=== PATIENT | female | born 1995 | race Caucasian/White ===

== ENCOUNTER 2017-03-10 10:20 | Emergency (ER) | payer SELFPAY ==
[2017-03-10 10:32] VITALS: BP 120/70; BMI 20.5
--- NOTE | 2017-03-10 13:07 | ED.ABDFE ---
HPI - PCP Primary Care Physician: CHEPE RODAS - Complaint Chief Complaint:: PT C/O GETTING OUT OF HER CAR AND FALLING ON HER BUTT ,,, AND SHE HAS HAD LOWER ABD PAINS COMING OFF AND ON ,, AND SOME SPOTTING,, - Nurses notes reviewed Nurses Notes Review: Yes - Source History Provided: Patient - Mode of arrival Mode of Arrival: Ambulatory - Timing Onset of Chief Complaint: 03/09/17 PMH - PMH Past Medical History: No Past Surgical History: No - Family History History of Family Medical Conditions: No - Social History Does patient currently use any type of tobacco product: No Have you used tobacco products in the last 12 months: No Type of Tobacco Use: None Does any household member use tobacco: No Alcohol Use: None Do you use any recreational Drugs:: No Lives With: Family Lives Where: Home - infectious screening In the last 2 months have you had wt loss of >10#?: NO Have you had fever, night sweats or hemotysis?: No Have you traveled outside the country in the last 6 months?: No Isolation: Standard PE - Vital Signs Vitals: Pulse Rate 79 Respiratory Rate 18 Blood Pressure 120/70 O2 Sat by Pulse Oximetry 100 - Discharge Plan Condition: Stable - Follow ups/Referrals Follow ups/Referrals: NFD,None [Primary Care Provider] - 3 days - Instructions Instructions: Abdominal Pain, Adult, [id number] Additional Instructions: RETURN TO ED IF WORSE.
--- NOTE | 2017-03-10 14:13 | RAD ---
Acute abdominal series Indication: abdominal pain after fall Comparison: None available Findings: The trachea is midline. The cardiac silhouette is unremarkable. The lungs are clear without focal i nfiltrate or effusion. The bony thorax is unremarkable. Flat and upright evaluation of the abdomen demonstrates a normal bowel gas pattern. No pathological soft tissue mass or calcification can be observed. The bony structures are grossly intact. IMPRESSION: 1. No acute cardiopulmonary disease. 2. No evidence for acute abdominal pathology identified. Reported By:
[2017-03-10 14:28] LABS: APPEARANCE,URINE CLEAR (CLEAR); COLOR,URINE YELLOW (YELLOW)
[2017-03-10 14:29] LABS: BILIRUBIN,URINE NEGATIVE (NEGATIVE); BLOOD/HEMOGLOBIN,URINE NEGATIVE (NEGATIVE); GLUCOSE, URINE NEGATIVE (NEGATIVE); KETONES,URINE NEGATIVE (NEGATIVE); NITRITES,URINE NEGATIVE (NEGATIVE); PROTEIN,URINE NEGATIVE (NEGATIVE); UROBILINOGEN,URINE NORMAL (NORMAL)
[2017-03-10 14:30] LABS: AMORPHOUS SEDIMENT,UR TRACE /HPF (NEGATIVE); BACTERIA,URINE NEGATIVE /HPF (NEGATIVE); LEUKOCYTE ESTERASE ,URINE NEGATIVE (NEGATIVE); RBC,URINE R /HPF (NEGATIVE); SQUAMOUS EPITHELIAL CELL,UR RARE /HPF (NEGATIVE)
[2017-03-10 14:37] LABS: AMYLASE 63 Units/L (25-115); BASOPHILS % (AUTO) 0.6 % (0.2-1.0); BLOOD UREA NITROGEN 6 mg/dL (7-18); CALCIUM 8.6 mg/dL (8.5-10.1); CARBON DIOXIDE 24.8 mmol/L (21-32); CHLORIDE 105 mmol/L (98-107); EOSINOPHILS # (AUTO) 0.1 x10^3/uL (0.0-0.2); EOSINOPHILS % (AUTO) 1.1 % (0.9-2.9); HEMATOCRIT 34.9 % (36.0-47.0); LIPASE 142 Units/L (73-393); LYMPHOCYTES # (AUTO) 2.2 X10^3/uL (1.3-2.9); LYMPHOCYTES % (AUTO) 36.1 % (21.0-51.0); MEAN CORPUSCULAR HEMOGLOBIN 32.2 pg (27.0-34.0); MEAN CORPUSCULAR HGB CONC 34.5 g/dL (33.0-35.0); MEAN CORPUSCULAR VOLUME 93.3 fL (80.0-100.0); MEAN PLATELET VOLUME 7.2 fL (7.4-11.0); MONOCYTES # (AUTO) 0.5 x10^3/uL (0.3-0.8); MONOCYTES % (AUTO) 8.2 % (0.0-13.0); NEUTROPHILS # (AUTO) 3.3 x10^3/uL (2.2-4.8); PLATELET COUNT 290 X10^3/uL (150.0-450.0); RED BLOOD COUNT 3.74 X10^6/uL (3.5-5.4); RED CELL DISTRIBUTION WIDTH 12.7 % (11.6-16.5); SODIUM 139 mmol/L (136-145); eGFR BLACK RACES > 60 (>60); eGFR NON BLACK RACES > 60 (>60)
== END 2017-03-10 13:24 | disposition home or self-care (01) ==
LOC: ER 10:39
DX: R10.84 Generalized abdominal pain (principal)
CPT/HCPCS: 36415; 74022; 80048; 81001; 82150; 83690; 85025; 99282

== ENCOUNTER 2021-03-19 16:11 | Observation (INO) ==
[2021-03-19 16:19] VITALS: BMI 21.8
[2021-03-19 17:09] LABS: AMYLASE 41 Units/L (25-115); LIPASE 58 Units/L (73-393)
--- NOTE | 2021-03-19 17:17 | ED.ABDFE ---
HPI Time Seen Time Seen by Provider: 03/19/21 17:15 PCP Primary Care Physician: Lucien Whitaker Doctors Chief Complaint Comments: c/o abd pain RLQ. CT done today shows early appy. Chief Complaint:: Pt c/o abd pain x 2 days. She states she had a ct done today and was told to follow up with Dr. Mcgraw . She states she is unable to wait for follow up due to pain. She states Dr. Mcgraw's office " Told me to prepare for surgery." COVID-19 Coronavirus risk:travel/contact w/high risk person: No Has patient experienced Coronavirus symptoms: No Source History Provided: Patient Mode of arrival Mode of Arrival: Ambulatory Timing Onset of Chief Complaint: 03/18/21 PMH PMH Past Medical History: No Past Surgical History: Yes Surgical History: Family History History of Family Medical Conditions: No Social History Does patient currently use any type of tobacco product: No Have you used tobacco products in the last 12 months: No Type of Tobacco Use: None Does any household member use tobacco: No Alcohol Use: None Do you use any recreational Drugs:: No Lives With: Family Lives Where: Home Travel Risk Coronavirus risk:travel/contact w/high risk person: No Has patient experienced Coronavirus symptoms: No Infectious screening In the last 2 months have you had wt loss of >10#?: NO Have you had fever, night sweats or hemotysis?: No Have you traveled outside the country in the last 6 months?: No Isolation: Standard ROS Review of Systems Constitutional: No Symptoms Reported Eyes: No Symptoms Reported Respiratoy: No Symptoms Reported Cardiovascular: No Symptoms Reported Gastrointestinal/Abdominal: See HPI Genitourinary: No Symptoms Reported Neurological: No Symptoms Reported Musculoskeletal: No Symptoms Reported PE Vital Signs Vitals: Temperature 98.1 F Pulse Rate 78 Respiratory Rate 16 Blood Pressure 123/78 O2 Sat by Pulse Oximetry 97 Head Head Exam: Normal Inspection, Atraumatic and Normocephalic ENT ENT Exam: Normal Exam Neck Neck Exam: Normal Inspection Respiratory Respiratory Exam: Normal Lung Sounds Bilat; negative Accessory Muscle Use Cardiovascular Cardiovascular Exam: Regular Rate and Normal Heart Sounds Abdominal Exam Abdominal Exam: Normal Inspection, Normal Bowel Sounds, Soft and Tenderness (RLQ); negative Rebound Back Back Exam: Normal Inspection Neurologic Neurological Exam: Alert and Oriented X3 Skin Skin Exam: Warm, Dry and Intact ROR Labs Reviewed Laboratory Results Reviewed?: Yes (reviewed BMP, UA both neg. ) Result Diagrams: 03/19/21 17: Laboratory: WBC 9.0 X10^3/uL (3.6-10.0) 03/19/21 17: RBC 4.05 X10^6/uL (3.5-5.4) 03/19/21 17: Hgb 13.2 g/dL (12.0-16.0) 03/19/21 17: Hct 38.5 % (36.0-47.0) 03/19/21 17: MCV 95.1 fL (80.0-100.0) 03/19/21 17: MCH 32.6 pg (27.0-34.0) 03/19/21 17: MCHC 34.3 g/dL (33.0-35.0) 03/19/21 17: RDW 12.5 % (11.6-16.5) 03/19/21 17: Plt Count 260 X10^3/uL (150.0-450.0) 03/19/21 17: MPV 7.6 fL (7.4-11.0) 03/19/21 17: Neut % (Auto) 59.6 % (42.0-75.0) 03/19/21 17: Lymph % (Auto) 31.1 % (21.0-51.0) 03/19/21 17: Bennett % (Auto) 8.4 % (0.0-13.0) 03/19/21 17: Eos % (Auto) 0.5 % (0.9-2.9) L 03/19/21 17:33 Baso % (Auto) 0.4 % (0.2-1.0) 03/19/21 17: Neut # (Auto) 5.3 x10^3/uL (2.2-4.8) H 03/19/21 17: Lymph # (Auto) 2.8 X10^3/uL (1.3-2.9) 03/19/21 17: Bennett # (Auto) 0.8 x10^3/uL (0.3-0.8) 03/19/21 17:33 Eos # (Auto) 0.0 x10^3/uL (0.0-0.2) 03/19/21 17:33 Baso # (Auto) 0.0 X10^3/uL (0.0-0.1) 03/19/21 17:33 Absolute Nucleated RBC 0.1 /100WBC 03/19/21 17:33 Amylase 41 Units/L (25-115) 03/19/21 12:08 Lipase 58 Units/L (73-393) L 03/19/21 12:08 HCG, Qual Negative <10 mIU/mL 03/19/21 12:08 Specimen Type Clean catch urine 03/19/21 18:02 Urine Color Yellow (YELLOW) 03/19/21 18:02 Urine Appearance Clear (CLEAR) 03/19/21 18:02 Urine pH 6.5 (5.0 - 8.0) 03/19/21 18:02 Ur Specific [place] 1.005 (1.000-1.030) 03/19/21 18:02 Urine Protein 3+ (NEGATIVE) 03/19/21 18:02 Urine Glucose (UA) Negative (NEGATIVE) 03/19/21 18:02 Urine Ketones 3+ (NEGATIVE) 03/19/21 18:02 Urine Occult Blood 1+ (NEGATIVE) 03/19/21 18:02 Urine Nitrite Negative (NEGATIVE) 03/19/21 18:02 Urine Bilirubin Negative (NEGATIVE) 03/19/21 18:02 Urine Urobilinogen Normal (NORMAL) 03/19/21 18:02 Ur Leukocyte Esterase 1+ (NEGATIVE) 03/19/21 18:02 Urine RBC 3-5 /HPF (0-3) A 03/19/21 18:02 Urine WBC 3-5 /HPF (0-5) 03/19/21 18:02 Ur Squamous Epith Cells Rare /HPF (NEGATIVE) 03/19/21 18:02 Urine Bacteria Trace /HPF (NEGATIVE) 03/19/21 18:02 Ur Culture Indicated? No/not indicated 03/19/21 18:02 Opioid Opioid Risk Tool Age (Manuel box if 16-45): Yes History of Preadolescent Sexual Abuse: No Total: 1 Total Score Risk Category: Low Risk Copyright: Sergey BRIONES predicting aberrant behaviors Diagnosis Discharge Problem: Abdominal pain, Appendicitis ADDITIONAL NOTES Additional Notes Additional Notes: admit to Dr Mcgraw per Dr Hart
[2021-03-19 17:35] LABS: SERUM PREGNANCY TEST, QUAL NEGATIVE <10 mIU/mL
[2021-03-19] MEDS ORDERED: ZOSYN VIAL 3.375 GRAMS 3.375 G in NS 50 ML IV + SPIKE MINIBAG* 50 ML IV ONE (17:38)
[2021-03-19] MEDS ORDERED: ZOSYN VIAL 3.375 GRAMS IV ONE (17:46)
[2021-03-19] MEDS ORDERED: NS 100 ML IV + SPIKE MINIBAG* 100 ML IV ONE (17:46)
[2021-03-19] MEDS ORDERED: NS 1000 ML 1,000 ML ONE (17:46)
[2021-03-19 17:50] LABS: BASOPHILS % (AUTO) 0.4 % (0.2-1.0); EOSINOPHILS % (AUTO) 0.5 % (0.9-2.9); HEMATOCRIT 38.5 % (36.0-47.0); HEMOGLOBIN 13.2 g/dL (12.0-16.0); LYMPHOCYTES # (AUTO) 2.8 X10^3/uL (1.3-2.9); LYMPHOCYTES % (AUTO) 31.1 % (21.0-51.0); MEAN CORPUSCULAR HEMOGLOBIN 32.6 pg (27.0-34.0); MEAN CORPUSCULAR HGB CONC 34.3 g/dL (33.0-35.0); MEAN CORPUSCULAR VOLUME 95.1 fL (80.0-100.0); MEAN PLATELET VOLUME 7.6 fL (7.4-11.0); MONOCYTES # (AUTO) 0.8 x10^3/uL (0.3-0.8); MONOCYTES % (AUTO) 8.4 % (0.0-13.0); NEUTROPHILS # (AUTO) 5.3 x10^3/uL (2.2-4.8); NEUTROPHILS % (AUTO) 59.6 % (42.0-75.0); PLATELET COUNT 260 X10^3/uL (150.0-450.0); RED BLOOD COUNT 4.05 X10^6/uL (3.5-5.4); RED CELL DISTRIBUTION WIDTH 12.5 % (11.6-16.5)
[2021-03-19] MEDS ORDERED: NS 1000 ML 1,000 ML IV SCH ×2 (18:00→21:00)
[2021-03-19 18:38] LABS: BILIRUBIN,URINE NEGATIVE (NEGATIVE); BLOOD/HEMOGLOBIN,URINE 1+ (NEGATIVE); GLUCOSE, URINE NEGATIVE (NEGATIVE); KETONES,URINE 3+ (NEGATIVE); LEUKOCYTE ESTERASE ,URINE 1+ (NEGATIVE); NITRITES,URINE NEGATIVE (NEGATIVE); PH,URINE 6.5 (5.0 - 8.0); PROTEIN,URINE 3+ (NEGATIVE); UROBILINOGEN,URINE NORMAL (NORMAL)
[2021-03-19 18:54] LABS: APPEARANCE,URINE CLEAR (CLEAR); COLOR,URINE YELLOW (YELLOW)
[2021-03-19 18:55] LABS: BACTERIA,URINE TRACE /HPF (NEGATIVE); SQUAMOUS EPITHELIAL CELL,UR RARE /HPF (NEGATIVE)
[2021-03-19] MEDS ORDERED: DILAUDID INJ IVP PRN (20:26)
[2021-03-19] MEDS: ZOSYN VIAL 3.375 GRAMS 3.375 G in NS 50 ML IV + SPIKE MINIBAG* 50 ML IV SCH ×2 (20:46→22:01)
[2021-03-19] MEDS ORDERED: D5 1/2 NS 1000 ML 1,000 ML IV ONE (20:54)
[2021-03-19] MEDS: D5 1/2 NS 1000 ML 1,000 ML IV SCH (21:04)
[2021-03-19] MEDS: ZOFRAN INJ 4 MG VIAL IVP PRN (23:50)
[2021-03-20] MEDS: D5 1/2 NS 1000 ML 1,000 ML IV SCH ×2 (05:42→13:41)
[2021-03-20] MEDS: ZOSYN VIAL 3.375 GRAMS 3.375 G in NS 50 ML IV + SPIKE MINIBAG* 50 ML IV SCH ×3 (05:58→22:10)
--- NOTE | 2021-03-20 06:20 | RAD ---
HISTORYPOSSIBLE SX FOR APPENDICITISSTUDYCHEST, 1 VIEWCOMPARISONNoneTECHNIQUEAP view of the chestFINDINGSThe cardiac and mediastinal contours are within normal limits. The lungs are clear without focal consolidation or segmental collapse. No pleural effusion or pneumothorax.IMPRESSIONNo acute pulmonary process.Electronically signed by: Cameron Abreu (Mar 20, 2021 06:18:07)
[2021-03-20 06:38] LABS: BASOPHILS % (AUTO) 0.6 % (0.2-1.0); EOSINOPHILS # (AUTO) 0.1 x10^3/uL (0.0-0.2); EOSINOPHILS % (AUTO) 1.4 % (0.9-2.9); HEMATOCRIT 36.7 % (36.0-47.0); HEMOGLOBIN 12.6 g/dL (12.0-16.0); LYMPHOCYTES # (AUTO) 2.3 X10^3/uL (1.3-2.9); LYMPHOCYTES % (AUTO) 39.6 % (21.0-51.0); MEAN CORPUSCULAR HEMOGLOBIN 32.4 pg (27.0-34.0); MEAN CORPUSCULAR HGB CONC 34.3 g/dL (33.0-35.0); MEAN CORPUSCULAR VOLUME 94.5 fL (80.0-100.0); MEAN PLATELET VOLUME 7.8 fL (7.4-11.0); MONOCYTES # (AUTO) 0.7 x10^3/uL (0.3-0.8); MONOCYTES % (AUTO) 13.1 % (0.0-13.0); NEUTROPHILS # (AUTO) 2.6 x10^3/uL (2.2-4.8); NEUTROPHILS % (AUTO) 45.3 % (42.0-75.0); PLATELET COUNT 221 X10^3/uL (150.0-450.0); RED BLOOD COUNT 3.88 X10^6/uL (3.5-5.4); RED CELL DISTRIBUTION WIDTH 12.4 % (11.6-16.5); WHITE BLOOD COUNT 5.7 X10^3/uL (3.6-10.0)
[2021-03-20 06:57] LABS: ALANINE AMINOTRANSFERASE 10 Units/L (12-78); ALBUMIN 3.7 g/dL (3.4-5.0); ALKALINE PHOSPHATASE 28 Units/L (46-116); ASPARTATE AMINO TRANSFERASE 13 Units/L (15-37); BLOOD UREA NITROGEN 11 mg/dL (7-18); CALCIUM 8.2 mg/dL (8.5-10.1); CARBON DIOXIDE 22.3 mmol/L (21-32); CHLORIDE 102 mmol/L (98-107); CREATININE 0.79 mg/dL (0.55-1.02); SODIUM 137 mmol/L (136-145); TOTAL PROTEIN 6.7 g/dL (6.4-8.2); eGFR NON BLACK RACES > 60 (>60)
[2021-03-20] MEDS: ZOFRAN INJ 4 MG VIAL IVP PRN (07:21)
[2021-03-20] MEDS ORDERED: MORPHINE SULFATE INJ 2 MG INJ IVP PRN (07:44)
[2021-03-20] MEDS ORDERED: POTASSIUM CHL 60 MEQ/NS 0.45% 500 ML IV PRN (09:20)
[2021-03-20] MEDS ORDERED: POTASSIUM CHLORIDE LIQ 20 MEQ UDC PO PRN (09:20)
[2021-03-20] MEDS ORDERED: KLOR-CON PO PRN (09:20)
[2021-03-20] MEDS ORDERED: MICRO K EXTEN CAP 10 MEQ PO PRN (09:20)
[2021-03-20] MEDS ORDERED: K-DUR TAB 20 MEQ PO PRN (09:20)
[2021-03-20] MEDS ORDERED: POTASSIUM CHL 40 MEQ/NS 0.45% 500 ML IV PRN (09:20)
--- NOTE | 2021-03-20 09:26 | US ---
HISTORYRLQ ABD PAINSTUDYPELVIC (NON OB)COMPARISONNoneTECHNIQUEPelvic ultrasound, transabdominal approach.FINDINGSThe uterus measures 7.5 x 4.2 x 4.8 cm. The endometrium measures 1 cm. An IUD is visualized within the endometrial canal. Right ovary measures 2.6 x 2.7 x 2.3 cm. Left ovary measures 3.5 x 1.8 x 1.7 cm. There is normal Doppler flow to both ovaries. Normal appearing left ovarian follicle. No free fluid in the pelvis.IMPRESSIONNormal transabdominal pelvic ultrasound.Electronically signed by: Cameron bAreu (Mar 20, 2021 09:24:07)
--- NOTE | 2021-03-20 11:20 | DR.UPDATE ---
H&P Update History and Physical Update: History and Physical reviewed and patient examined. Changes noted: Yes with the following: PRESENTED TO THE OFFICE WITH COMPLAINTS OF SEVERE RLQ ABDOMINAL PAIN, N/V X 1 DAY. SHE DENIED FEVER. [facility] CT WHICH REVEALED POSSIBLE VERY EARLY ACUTE APPENDICITIS. SHE WAS THEN SENT THROUGH THE ER FOR FURTHER EVALUATION AND A SURGICAL CONSULT. LABS WERE OBTAINED IN THE ER AND WERE ESSENTIALLY NORMAL. LIPASE WAS 58, BUT WBC WAS WNL. URINALYSIS DID REVEAL WBC 3-5, RBC 3-5, LEUKOCYTES 1+, BACTERIA TRACE. SHE WAS STARTED ON D51/2NS AT 125 ML/HR, MORPHINE SULFATE 2MG IV Q4H PRN, ZOFRAN 4MG IV Q8H PRN, ZOSYN 3.375G IV TID. , GENERAL SURGEON WILL CONSULT WITH PATIENT. OTHERWISE, WE WILL FOLLOW UP WITH AM LABS AND CONTINUE TO MONITOR PATIENT. TIME SPENT ON CLINICAL ASSESSMENT, REVIEWING LABS AND IMAGING, DECISION MAKING, AND DOCUMENTATION GREATER THAN 75 MINUTES. Prescription drug monitoring program results: PDMP was not reviewed H&P Reviewed: Yes Patient was examined?: Yes
[2021-03-20] MEDS: K-RIDER 10 MEQ/NS 100 ML 10 MEQ/100 ML BAG IV PRN ×2 (11:45→12:20)
[2021-03-20] MEDS ORDERED: FENTANYL VIAL INJ 100 mcg ONE (13:33)
[2021-03-20] MEDS ORDERED: DILAUDID INJ ONE (13:33)
[2021-03-20] MEDS ORDERED: XYLOCAINE 2 % (PLAIN) ONE (14:54)
[2021-03-20] MEDS ORDERED: DIPRIVAN VIAL ONE (14:54)
[2021-03-20] MEDS ORDERED: LTA KIT LIDOCAINE 4% ONE (14:54)
[2021-03-20] MEDS ORDERED: ZEMURON 50 MG VIAL ONE (14:54)
[2021-03-20] MEDS ORDERED: BRIDION ONE (14:54)
[2021-03-20] MEDS ORDERED: VERSED ONE (14:54)
[2021-03-20] MEDS ORDERED: ZOFRAN INJ 4 MG VIAL ONE (14:54)
[2021-03-20] MEDS ORDERED: DECADRON INJ ONE (14:54)
[2021-03-20] MEDS ORDERED: BETADINE SOLN ONE (15:12)
[2021-03-20] MEDS ORDERED: OFIRMEV IV 1000 MG VIAL 1,000 MG/100 ML VIAL IV ONE (15:19)
[2021-03-20] MEDS ORDERED: BACTROBAN TOPICAL OINT ONE (15:28)
[2021-03-20] MEDS ORDERED: PHENERGAN INJ 25 MG IM PRN (15:56)
[2021-03-20] MEDS ORDERED: BARHEMSYS INJ IVP PRN (15:56)
[2021-03-20] MEDS ORDERED: BENADRYL INJ 50 MG VIAL IVP PRN (15:56)
[2021-03-20] MEDS ORDERED: DILAUDID INJ IVP PRN (15:56)
[2021-03-20] MEDS ORDERED: D5 1/4 NS 1000 ML 1,000 ML IV SCH (16:01)
[2021-03-20] MEDS ORDERED: BARHEMSYS INJ ONE (16:21)
[2021-03-20] MEDS ORDERED: MYLICON TAB 80 MG CHEW PO PRN (17:55)
[2021-03-20] MEDS ORDERED: ANCEF VIAL 1 GRAM IVP SCH (22:00)
[2021-03-20] MEDS: TYLENOL 325 MG TAB PO PRN (23:13)
[2021-03-21] MEDS: D5 1/2 NS 1000 ML 1,000 ML IV SCH ×2 (06:03)
[2021-03-21] MEDS: ZOSYN VIAL 3.375 GRAMS 3.375 G in NS 50 ML IV + SPIKE MINIBAG* 50 ML IV SCH (06:03)
[2021-03-21] MEDS: TYLENOL 325 MG TAB PO PRN (06:18)
[2021-03-21 06:36] LABS: BASOPHILS % (AUTO) 0 % (0.2-1.0); HEMATOCRIT 36.8 % (36.0-47.0); HEMOGLOBIN 12.7 g/dL (12.0-16.0); LYMPHOCYTES # (AUTO) 0.9 X10^3/uL (1.3-2.9); LYMPHOCYTES % (AUTO) 13.5 % (21.0-51.0); MEAN CORPUSCULAR HEMOGLOBIN 32.1 pg (27.0-34.0); MEAN CORPUSCULAR HGB CONC 34.6 g/dL (33.0-35.0); MONOCYTES # (AUTO) 0.5 x10^3/uL (0.3-0.8); MONOCYTES % (AUTO) 7.4 % (0.0-13.0); NEUTROPHILS # (AUTO) 5.6 x10^3/uL (2.2-4.8); NEUTROPHILS % (AUTO) 79.1 % (42.0-75.0); PLATELET COUNT 224 X10^3/uL (150.0-450.0); RED BLOOD COUNT 3.96 X10^6/uL (3.5-5.4); RED CELL DISTRIBUTION WIDTH 12.4 % (11.6-16.5)
[2021-03-21 07:02] LABS: ALANINE AMINOTRANSFERASE 11 Units/L (12-78); ALBUMIN 3.4 g/dL (3.4-5.0); ALKALINE PHOSPHATASE 26 Units/L (46-116); ASPARTATE AMINO TRANSFERASE 13 Units/L (15-37); BLOOD UREA NITROGEN 5 mg/dL (7-18); CHLORIDE 104 mmol/L (98-107); COR NA(FOR HYPERGLY) 138 mmol/L (136-145); CREATININE 0.72 mg/dL (0.55-1.02); SODIUM 137 mmol/L (136-145); TOTAL PROTEIN 6.6 g/dL (6.4-8.2); eGFR NON BLACK RACES > 60 (>60)
--- NOTE | 2021-03-21 07:54 | DR.PROGNOT ---
Hospital Progress Notes - Progress Note for Day of: Progress Note Date: 03/21/21 - Chief Complaint Chief Complaint: doing very well . no pain . OOB .tolerating diet well . afebrile . - Past Medical Family Social History Past Med/Fam/Surg Hx: No changes since H&P Allergies: Allergies No Known Drug Allergies Allergy (Verified 03/10/17 10:32) - Review Of Systems ROS: No change since H&P - Vital Signs Vital Signs: Temperature 98.3 F Pulse Rate [Left] 60 Pulse Rate 90 Respiratory Rate 22 Blood Pressure [Left Arm] 91/55 Blood Pressure 117/60 O2 Sat by Pulse Oximetry 100 - Physical Exam Oriented: Normal Eyes: Normal Ear: Normal Nose: Normal Throat: Normal Respiratory: Normal Cardiovascular: Normal : Normal GI: Tenderness: Normal Skin: Normal Musculoskeletal: Normal Mood Description: Calm Speech Pattern: Clear, Appropriate - Laboratory and Diagnostics Result Diagrams: 03/21/21 05:55 03/21/21 05:55 Labs: Laboratory WBC 7.0 X10^3/uL (3.6-10.0) 03/21/21 05:55 RBC 3.96 X10^6/uL (3.5-5.4) 03/21/21 05:55 Hgb 12.7 g/dL (12.0-16.0) 03/21/21 05:55 Hct 36.8 % (36.0-47.0) 03/21/21 05:55 MCV 93.0 fL (80.0-100.0) 03/21/21 05:55 MCH 32.1 pg (27.0-34.0) 03/21/21 05:55 MCHC 34.6 g/dL (33.0-35.0) 03/21/21 05:55 RDW 12.4 % (11.6-16.5) 03/21/21 05:55 Plt Count 224 X10^3/uL (150.0-450.0) 03/21/21 05:55 MPV 8.0 fL (7.4-11.0) 03/21/21 05:55 Neut % (Auto) 79.1 % (42.0-75.0) H 03/21/21 05:55 Lymph % (Auto) 13.5 % (21.0-51.0) L 03/21/21 05:55 Josephine % (Auto) 7.4 % (0.0-13.0) 03/21/21 05:55 Eos % (Auto) 0.0 % (0.9-2.9) L 03/21/21 05:55 Baso % (Auto) 0 % (0.2-1.0) L 03/21/21 05:55 Neut # (Auto) 5.6 x10^3/uL (2.2-4.8) H 03/21/21 05:55 Lymph # (Auto) 0.9 X10^3/uL (1.3-2.9) L 03/21/21 05:55 Josephine # (Auto) 0.5 x10^3/uL (0.3-0.8) 03/21/21 05:55 Eos # (Auto) 0.0 x10^3/uL (0.0-0.2) 03/21/21 05:55 Baso # (Auto) 0.0 X10^3/uL (0.0-0.1) 03/21/21 05:55 Absolute Nucleated RBC 0.1 /100WBC 03/21/21 05:55 Sodium 137 mmol/L (136-145) 03/21/21 05:55 Corrected Sodium 138 mmol/L (136-145) 03/21/21 05:55 Potassium 3.9 mmol/L (3.5-5.1) 03/21/21 05:55 Chloride 104 mmol/L (98-107) 03/21/21 05:55 Carbon Dioxide 24.0 mmol/L (21-32) 03/21/21 05:55 BUN 5 mg/dL (7-18) L 03/21/21 05:55 Creatinine 0.72 mg/dL (0.55-1.02) 03/21/21 05:55 Est GFR (MDRD) Af Amer > 60 (>60) 03/21/21 05:55 Est GFR (MDRD) Non-Af > 60 (>60) 03/21/21 05:55 Glucose 128 mg/dL (65-99) H 03/21/21 05:55 Calcium 8.0 mg/dL (8.5-10.1) L 03/21/21 05:55 Corrected Calcium TNP 03/21/21 05:55 Magnesium 2.1 mg/dL (1.7-2.9) 03/20/21 08:06 Total Bilirubin 0.60 mg/dL (0.2-1.0) 03/21/21 05:55 AST 13 Units/L (15-37) L 03/21/21 05:55 ALT 11 Units/L (12-78) L 03/21/21 05:55 Alkaline Phosphatase 26 Units/L (46-116) L 03/21/21 05:55 Total Protein 6.6 g/dL (6.4-8.2) 03/21/21 05:55 Albumin 3.4 g/dL (3.4-5.0) 03/21/21 05:55 Globulin 3.2 g/dL (2.5-4.5) 03/21/21 05:55 Albumin/Globulin Ratio 1.1 Ratio (1.1-2.1) 03/21/21 05:55 Amylase 41 Units/L (25-115) 03/19/21 12:08 Lipase 58 Units/L (73-393) L 03/19/21 12:08 HCG, Qual Negative <10 mIU/mL 03/19/21 12:08 Specimen Type Clean catch urine 03/19/21 18:02 Urine Color Yellow (YELLOW) 03/19/21 18:02 Urine Appearance Clear (CLEAR) 03/19/21 18:02 Urine pH 6.5 (5.0 - 8.0) 03/19/21 18:02 Ur Specific [place] 1.005 (1.000-1.030) 03/19/21 18:02 Urine Protein 3+ (NEGATIVE) 03/19/21 18:02 Urine Glucose (UA) Negative (NEGATIVE) 03/19/21 18:02 Urine Ketones 3+ (NEGATIVE) 03/19/21 18:02 Urine Occult Blood 1+ (NEGATIVE) 03/19/21 18:02 Urine Nitrite Negative (NEGATIVE) 03/19/21 18: Urine Bilirubin Negative (NEGATIVE) 03/19/21 18:02 Urine Urobilinogen Normal (NORMAL) 03/19/21 18:02 Ur Leukocyte Esterase 1+ (NEGATIVE) 03/19/21 18:02 Urine RBC 3-5 /HPF (0-3) A 03/19/21 18:02 Urine WBC 3-5 /HPF (0-5) 03/19/21 18:02 Ur Squamous Epith Cells Rare /HPF (NEGATIVE) 03/19/21 18:02 Urine Bacteria Trace /HPF (NEGATIVE) 03/19/21 18:02 Ur Culture Indicated? No/not indicated 03/19/21 18:02 SARS CoV-2 RNA Rapid ABBY Negative (NEGATIVE) 03/19/21 20:58 Tissue Pathology To follow 03/20/21 15:27 - Assessment and Plan 1: PO lap appendectomy . on full liquid . no need for more ATB now .. could be discharged . f/u in 10 days . - Problem Patient Problems: Patient Problems Abdominal pain (Acute) R10.9 Appendicitis (Acute) K37
[2021-03-21 12:05] VITALS: BP 117/73
== END 2021-03-21 12:22 | disposition home or self-care (01) ==
LOC: ER 16:14 → OBS 16:14
PROVIDERS: ADMIT Internal Medicine; ATTEND Internal Medicine
PROC: APPYLAP (ICD-10-PCS; 2021-03-20 15:45)
DX: R79.89 Other specified abnormal findings of blood chemistry; R50.9 Fever, unspecified; R19.7 Diarrhea, unspecified; R10.31 Right lower quadrant pain; Z20.822 Contact with and (suspected) exposure to COVID-19; R11.2 Nausea with vomiting, unspecified; K36 Other appendicitis